=== PATIENT | male | born 1970 | race Caucasian/White ===

== ENCOUNTER 2021-03-22 13:59 | Emergency (ER) | payer OTHER ==
[2021-03-22 16:18] LABS: RED BLOOD COUNT 5.01 M/UL (4.20-5.50); WHITE BLOOD COUNT 8.2 K/UL (4.5-11.0)
[2021-03-22 18:10] LABS: BUN/CREATININE RATIO 16 (0-10)
[2021-03-22] MEDS ORDERED: CYCLOBENZAPRINE5 MG PO (18:31)
[2021-03-22] MEDS ORDERED: IBUPROFEN600 MG PO (18:31)
== END 2021-03-22 20:27 | disposition home or self-care (01) ==
LOC: ER1 13:59
PROVIDERS: Emergency Medicine; Physician Assistant Medical
DX: M79.605 Pain in left leg (principal)
CPT/HCPCS: 72170; 73502; 73552; 73564; 80053; 85025; 85379; 96372; 99283; J1885